=== PATIENT | female | born 1960 | race Caucasian/White ===

== ENCOUNTER 2020-01-16 12:08 | Inpatient (IN) | payer OTHER ==
[~2020-01-16] VITALS: Ht 152.4 cm; Wt 84.8 kg
[~2020-01-16 12:08] MED LIST: CYCL10TA PO; HYDR25TAB PO; LISI-538 PO; LR 1,000 ML IV ONE; METF500T13 PO; NEUR100C PO; OMEP10CASR PO; PRAV40TA2 PO; SERO1TAB2 PO; ceFAZolin SOD 2 GM in IV 1 EA IV ONE
[2020-01-16] MEDS ORDERED: dexameTHASONE 10 MG/1 ML VIAL PRES.FREE (J1100) ONE (12:09)
[2020-01-16] MEDS ORDERED: ROPIvacaine 0.5% 30 ML INJECTION (J2795 PER 1MG) ONE (12:09)
[2020-01-16] MEDS ORDERED: dexameTHASONE 4 MG/ML 1ML VIAL (J1100) As Ordered ONE (13:05)
[2020-01-16] MEDS ORDERED: fentaNYL 250 MCG/5 ML INJECTION (J3010) As Ordered ONE (13:05)
[2020-01-16] MEDS ORDERED: propofoL 200 MG/20 ML VIAL As Ordered ONE (13:05)
[2020-01-16] MEDS ORDERED: MIDAZOLAM INJ 2 MG/2 ML VIAL (J2250) As Ordered ONE ×2 (13:05→16:47)
[2020-01-16] MEDS ORDERED: ROCURONIUM BROMIDE 50 MG/5 ML VIAL As Ordered ONE (13:05)
[2020-01-16] MEDS ORDERED: LIDOCAINE 2% INJ 100 MG/5 ML SDV (FOR ANES.) As Ordered ONE (13:05)
[2020-01-16] MEDS ORDERED: fentaNYL 100 MCG/2 ML INJECTION (J3010) As Ordered ONE (16:47)
[2020-01-16] MEDS ORDERED: fentaNYL 100 MCG/2 ML INJECTION (J3010) IV ONE (17:45)
[2020-01-16] MEDS ORDERED: MIDAZOLAM INJ 2 MG/2 ML VIAL (J2250) IV ONE (17:45)
[2020-01-16] MEDS ORDERED: ONDANSETRON 4MG/2ML VIAL (J2405) As Ordered ONE (18:21)
[2020-01-16] MEDS ORDERED: ACETAMINOPHEN 1000MG 100ML IV BTL (OFIRMEV) (J0131 PER 10MG) As Ordered ONE (20:23)
[2020-01-16] MEDS ORDERED: SUGAMMADEX SODIUM 500 MG/5 ML VIAL (BRIDION) As Ordered ONE (21:06)
[2020-01-16] MEDS ORDERED: NALOXONE INJ 0.4 MG/1 ML VIAL (J2310) As Ordered ONE (21:51)
[2020-01-16] MEDS ORDERED: METOCLOPRAMIDE INJ 10MG/2ML VIAL (J2765) As Ordered ONE (22:08)
[2020-01-16] MEDS ORDERED: LR 1,000 ML IV SCH ×2 (22:15→23:30)
[2020-01-16] MEDS ORDERED: METOCLOPRAMIDE INJ 10MG/2ML VIAL (J2765) IV PRN (22:15)
[2020-01-16] MEDS ORDERED: fentaNYL 100 MCG/2 ML INJECTION (J3010) IV PRN (22:15)
[2020-01-16] MEDS ORDERED: oxyCODONE 5MG TAB As Ordered ONE (22:17)
[2020-01-16 23:10] VITALS: BP 120/81
[2020-01-16] MEDS ORDERED: FLEET ENEMA PR PRN (23:30)
[2020-01-16] MEDS ORDERED: oxyCODONE 5MG TAB PO PRN (23:30)
[2020-01-16 23:34] VITALS: BP 118/81
[2020-01-16] MEDS: ACETAMINOPHEN 500 MG TAB PO SCH (23:37)
[2020-01-17] VITALS (8 sets, daily range): BP systolic 102–121; BP diastolic 60–81
[2020-01-17] MEDS: ceFAZolin SOD 2 GM in IV 1 EA IV SCH ×2 (02:01→10:54)
[2020-01-17] MEDS: ACETAMINOPHEN 500 MG TAB PO SCH ×3 (05:33→22:00)
[2020-01-17] MEDS ORDERED: TRAM50TA2 PO (06:07)
[2020-01-17] MEDS ORDERED: ASPI81TA85 PO (06:07)
[2020-01-17] MEDS: lisinopriL 20 MG TAB PO SCH (08:52)
[2020-01-17] MEDS: hydroCHLOROthiazide 25 MG TAB PO SCH (08:52)
[2020-01-17] MEDS: CYCLOBENZAPRINE 10 MG TAB PO SCH ×3 (08:52→20:47)
[2020-01-17] MEDS: metFORMIN (GLUCOPHAGE) 500 MG TAB PO SCH (08:52)
[2020-01-17] MEDS: GABAPENTIN 100 MG CAP PO SCH ×3 (08:52→20:47)
[2020-01-17] MEDS: oxyCODONE 5MG TAB PO PRN (08:52)
[2020-01-17] MEDS: ASPIRIN 81 MG CHEW TABLET PO SCH ×2 (08:52→20:47)
[2020-01-17] MEDS: OMEPRAZOLE 20 MG CAP PO SCH (08:53)
--- NOTE | 2020-01-17 10:16 | REP ---
RIGHT HEEL: HISTORY: Right Achilles debridement. 9-fzodbo-8-second of fluoroscopy time is reported. FINDINGS: A sequence of two last image hold fluoroscopically obtained right lateral ankle views are presented. Electronically Signed by Taco Boo MD 01/17/2020 12:52 P
[2020-01-17] MEDS: ONDANSETRON 4 MG ORAL DISINTEGRATING TAB (Q0162 PER 1MG) PO PRN (15:57)
[2020-01-17] MEDS ORDERED: PRAVASTATIN 20 MG TAB PO SCH (21:00)
[2020-01-17] MEDS ORDERED: QUEtiapine FUMARATE 100 MG TAB PO SCH (21:00)
--- NOTE | 2020-01-18 00:34 | RO ---
DATE OF PROCEDURE: 01/16/2020 PREPROCEDURE DIAGNOSIS: 1. 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 2. Right extensor hallucis longus tendon contracture POSTPROCEDURE DIAGNOSIS: 1. 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 2. Right extensor hallucis longus tendon contracture PROCEDURE: 1. Right excision and debridement of Achilles tendinotic tendon. 2. Right flexor hallucis longus tendon transfer to the calcaneal tuberosity. 3. Right calcaneal exostectomy. 4. Right semitendinosus allograft tendon reconstruction to the Achilles. 5. Right extensor hallucis longus lengthening. 6. Use of the mini C-arm. SURGEON: Hiwot Paulino MD NUT BLANKER OPERATOR: Jeramie Castellano MD ANESTHESIA: General endotracheal and popliteal nerve block. ESTIMATED BLOOD LOSS: 25 mL. SPECIMENS: Achilles tendon. COMPLICATIONS: None. CONDITION: Stable to recovery. INDICATIONS: Josefina Charles is a 59-year-old female who has longstanding pain and gait difficulties due to a plantar flexion contracture and a calcified Achilles tendon. The patient also has a cockup deformity of her toe due to extensor hallucis longus tendon contracture. She has failed conservative measures. Risks and benefits of surgery were discussed with the patient in detail and include, but are not limited to, infection, damage to nerves and blood vessels, continued pain and stiffness, need for additional procedures. Informed consent was obtained in the office. DESCRIPTION OF PROCEDURE: The patient was met in the preoperative holding area. Her right lower extremity was marked as the correct operative side. She was taken to the operating room and underwent general anesthesia. A well-padded tourniquet was placed on the right upper thigh. She received antibiotics within 60 minutes prior to incision. The patient was then placed in the prone position. All bony prominences were well padded. The right lower extremity was prepped and draped in the normal sterile fashion. An official time-out was held where the correct patient, operative site and operative procedure were verified. Patient had a prior scar which was primarily utilized running over the medial side of the tendon. This did require me to deviate slightly from the scar at the very distal aspect to gain full access to the tendon. There was no significant layer of peritenon and after incising the skin, the tendon was essentially exposed. Almost the entire length of the tendon had calcified. This was removed. Following this, there was a very small area of tendon that while tendinotic had not calcified and was present at the musculotendinous junction proximally. This was left in place. Following this, the calcaneal tuberosity was further exposed, and the bursa debrided. I then did a calcaneal exostectomy. Next, the flexor hallucis longus (FHL) tendon was identified and followed down along the medial aspect of the foot. It was then transected with a long handled knife. Tendon measured approximately 5.5 mm. A whipstich was performed. It was then brought through the calcaneal tuberosity using a Beath pin. The tendon was secured using a 5.5 mm Bio-Tenodesis screw after drilling about 20 mm with a 5.5 mm reamer. This had good bite. It was tensioned in neutral given patient's prior plantar flexion contracture. Following this, the tendon was further debrided distally as this was all tendinotic tissue. Next, the Achilles tendon was reconstructed using an allograft semitendinosus 6 mm x 29 mm tendon. A Beath pin was inserted into the tuberosity posterior to the FHL transfer and the whipstitched end of the allograft tendon was brought through the calcaneal tuberosity. This was after drilling again with a 5 mm reamer to about 20 mm. After the reaming was performed, the tendon was brought through plantarly. It was secured in place using the 4.75 mm SwiveLock. The tendon was then passed proximally through the remaining Achilles tendon stump proximally. It was secured with good tension in neutral dorsiflexion using #0 Vicryl. It was then tied down through one of the remaining FiberWires from the SwiveLock with good tension. The two sides of the tendon were then brought together using #2-0 Vicryl. There was good tension on the tendon and good fixation to the tuberosity. Following this, copious irrigation was performed. Subcutaneous tissues were closed with #3-0 Vicryl and the skin was closed with #3-0 nylon. Next, attention was turned to the dorsum of the foot. An incision was made just medial to the extensor hallucis longus (EHL) tendon. EHL was lengthened in a Z-type fashion until the toe had a resting tension similar to the lesser toes. It was secured in place with two #2-0 Vicryl sutures. Copious irrigation was performed. Subcutaneous tissues were closed using #3-0 Vicryl and the skin was closed using #3-0 nylon. A sterile dressing was applied. Tourniquet was let down. The patient was placed into a well-padded splint. She was extubated and transferred to the recovery room in stable condition after being brought back to supine position. A lateral C-arm image was taken which showed all areas of calcification had been removed as well as a satisfactory calcaneal exostectomy. Dr. Castellano was present for all portions of the case and was pet care assistant in tendon transfer, allograft tendon reconstruction, retraction, closure and overall for decrease in tourniquet time. PLAN: The patient will be non-weightbearing for 6 weeks. She will be seen in the clinic for a wound check. She will be admitted to the hospital overnight. She will be on aspirin for deep vein thrombosis (DVT) prophylaxis. H[place]LEY
[2020-01-18] MEDS: ACETAMINOPHEN 500 MG TAB PO SCH (04:57)
[2020-01-18 05:17] VITALS: BP 106/50
[2020-01-18] MEDS: CYCLOBENZAPRINE 10 MG TAB PO SCH (08:12)
[2020-01-18] MEDS: OMEPRAZOLE 20 MG CAP PO SCH (08:13)
[2020-01-18] MEDS: metFORMIN (GLUCOPHAGE) 500 MG TAB PO SCH (08:13)
[2020-01-18] MEDS: hydroCHLOROthiazide 25 MG TAB PO SCH (08:13)
[2020-01-18] MEDS: ASPIRIN 81 MG CHEW TABLET PO SCH (08:13)
[2020-01-18] MEDS: GABAPENTIN 100 MG CAP PO SCH (08:13)
[2020-01-18] MEDS: oxyCODONE 5MG TAB PO PRN (08:14)
[2020-01-18] MEDS: ONDANSETRON 4 MG ORAL DISINTEGRATING TAB (Q0162 PER 1MG) PO PRN (08:20)
[2020-01-18 08:21] VITALS: BP 100/53
[2020-01-18] MEDS: lisinopriL 20 MG TAB PO SCH (08:21)
--- NOTE | 2020-01-21 15:41 | DSES ---
DATE OF ADMISSION: 01/17/2020 DATE OF DISCHARGE: 01/18/2020 ADMITTING DIAGNOSIS: Achilles tendinosis, gait difficulties, and plantar flexion contracture. DISCHARGE DIAGNOSES: 1. Achilles tendinosis. 2. Achilles calcification. 3. Plantar flexion contracture status post right excision and debridement of Achilles tendon, right flexor hallucis longus tendon transfer, right calcaneal osteotomy, right semitendinosus, allograft tendon reconstruction to the Achilles, right extensor hallucis longus lengthening. HISTORY: This is a 59-year-old female patient with longstanding right Achilles pain and gait difficulty secondary to her flexion contracture and her calcified Achilles tendon. She elected for surgery for her continued symptoms. She was admitted for elective surgery. OPERATION PERFORMED: Right excision and debridement of the Achilles tendon, right flexor hallucis longus tendon transfer, right calcaneal osteotomy, right semitendinosus allograft tendon reconstruction to the Achilles, right extensor hallucis longus lengthening. HOSPITAL COURSE: The patient was admitted on day of surgery and underwent the above-listed procedure. It was well tolerated by the patient and without complications. During her postoperative period her pain was controlled. She was able to tolerate her postoperative restrictions on day of discharge and be nonweightbearing on her right lower extremity. She will use aspirin for deep vein thrombosis (DVT) prophylaxis. She will resume her preoperative medications and diet. She will follow up in our office in 7-10 days for surgical followup. She will use oral pain medications for pain control.
== END 2020-01-18 10:20 | disposition home health service (06) | DRG 317 ==
LOC: M SDC 12:08 → M MS5PR 22:53 → M SDC 01-17 15:54 → M MS5PR 01-17 15:55
PROVIDERS: ADMIT Orthopaedic Surgery; ATTEND Orthopaedic Surgery
PROC: 0LXS0ZZ Transfer Right Ankle Tendon, Open Approach (ICD-10-PCS; 2020-01-16)
PROC: 0LR Tendons, Replacement (ICD-10-PCS; 2020-01-16)
PROC: 0JXN0ZZ Transfer Right Lower Leg Subcutaneous Tissue and Fascia, Open Approach (ICD-10-PCS; 2020-01-16)
PROC: 0LBP0ZZ Excision of Left Lower Leg Tendon, Open Approach (ICD-10-PCS; principal; 2020-01-16 15:00)
DX: M76.61 Achilles tendinitis, right leg (principal); M72.2 Plantar fascial fibromatosis; R26.89 Other abnormalities of gait and mobility; I10 Essential (primary) hypertension; Z88.5 Allergy status to narcotic agent; Z88.2 Allergy status to sulfonamides; Z88.6 Allergy status to analgesic agent; Z88.8 Allergy status to other drugs, medicaments and biological substances; Z79.899 Other long term (current) drug therapy